=== PATIENT | male | born 1990 | race African-American/Black ===

== ENCOUNTER 2017-12-26 18:55 | Emergency (ER) | payer OTHER ==
[~2017-12-26 18:55] MED LIST: CEPH-460 PO; NAPR500 PO
[2017-12-26 19:51] VITALS: BP 117/88; PULSE 104; RESP 18; TEMP 99.8; O2SAT 97
[2017-12-26] MEDS ORDERED: FLUT1SPR5 EACH NARE (20:10)
[2017-12-26] MEDS ORDERED: DOXY100C PO (20:10)
--- NOTE | 2017-12-26 20:16 | PD ---
HPI Chief Complaint: Cold / Flu Symptoms Time Seen by Provider: 19:59 Travel History International Travel<30 days: No Contact w/Intl Traveler<30days: No Traveled to known affect area: No History of Present Illness HPI 27-year-old -[place] male presents emergency department with 2 complaints. #1 his upper respiratory infection symptoms including headache, congestion, fever and chills, postnasal drip, and cough. He does have generalized myalgias but no significant fever. He states no significant wheezing or chest congestion. He has no nausea vomiting. He has been taking [id number] cough medicines. Patient also states he was recently seen and treated for a UTI proximately 2 weeks ago, and he continues to have urinary frequency and urgency without dysuria. Patient was treated previously with Keflex upon my review of his medical record. Patient denies changes in partners , testicular pain, or penile discharge. He has no known drug allergies. PFSH Past Medical History Immunizations Current: Yes Tetanus Vaccination: < 5 Years Influenza Vaccination: No Social History Alcohol Use: No Tobacco Use: No Substance Use: No Allergies-Medications (Allergen,Severity, Reaction): Coded Allergies: No Known Allergies (Verified Adverse Reaction, Unknown, 12/26/17) Reported Meds & Prescriptions Reported Meds & Active Scripts Active Flonase Nasal [place] (Fluticasone Nasal [place]) 50 Mcg/Act [place] 100 Mcg EACH NARE BID Doxycycline Hyclate 100 Mg Cap 100 Mg PO BID 14 Days Keflex (Cephalexin) 500 Mg Cap 500 Mg PO Q12H Naprosyn (Naproxen) 500 Mg Tab 500 Mg PO BID Review of Systems Except as stated in HPI: all other systems reviewed are Neg General / Constitutional: Positive: Fever, Chills Eyes: Positive: Other (Pressure behind his eyes), No: Diploplia, Blurred Vision , Photophobia, Drainage, Visual changes HENT: Positive: Headaches, Sore Throat, Rhinitis, Rhinorrhea, Congestion, No: Vertigo, Lightheadedness, Nosebleed, Neck Stiffness, Neck Pain, Dental Difficulties, Earache Cardiovascular: No: Chest Pain or Discomfort Respiratory: Positive: Cough, No: Shortness of Breath, Wheezing, Sneezing Gastrointestinal: No: Nausea, Vomiting, Diarrhea, Abdominal Pain Genitourinary: Positive: Urgency, Frequency, No: Dysuria, Pelvic Pain, Flank Pain, Discharge Musculoskeletal: No: Pain Skin: No Rash Neurologic: No: Weakness Psychiatric: No: Depression Endocrine: No: Polydipsia Hematologic/Lymphatic: No: Easy Bruising Physical Exam Narrative GENERAL: Patient appears in mild distress. He appears ill but not septic. SKIN: Warm and dry. Normal color. Normal turgor. HEAD: Atraumatic. Normocephalic. Patient has mild sinus tenderness to percussion in the maxillary sinuses per EYES: Pupils equal and round. No scleral icterus. No injection or drainage. ENT: No nasal bleeding or discharge. Mucous membranes pink and moist. TMs are somewhat dull bilaterally. No injection. Patient has injection in the posterior pharynx with cobblestoning and postnasal drip noted NECK: Trachea midline. Supple nontender without significant lymphadenopathy. CARDIOVASCULAR: Regular rate and rhythm. RESPIRATORY: No accessory muscle use. Clear to auscultation. Breath sounds equal bilaterally. GASTROINTESTINAL: Abdomen soft, non-tender, nondistended. Hepatic and splenic margins not palpable. MUSCULOSKELETAL: Extremities without clubbing, cyanosis, or edema. No obvious deformities. NEUROLOGICAL: Awake and alert. No obvious cranial nerve deficits. Motor grossly within normal limits. Five out of 5 muscle strength in the arms and legs. Normal speech. PSYCHIATRIC: Appropriate mood and affect; insight and judgment normal. Data Data Last Documented VS Vital Signs Date Time Temp Pulse Resp B/P (MAP) Pulse Ox O2 Delivery O2 Flow Rate FiO2 12/26/17 19:51 99.8 104 18 117/88 (98) 97 MDM Medical Decision Making Medical Screen Exam Complete: Yes Emergency Medical Condition: Yes Medical Record Reviewed: Yes Differential Diagnosis Upper respiratory infection. Sinusitis. Question urinary retention secondary to cold meds versus prostatitis. Narrative Course Patient will be treated with doxycycline 100 mg twice daily for 2 weeks. Patient also started on Flonase nasal spray 2 sprays each nostril daily. Patient should avoid taking further cold medicine [id number] as this may be exacerbating his urinary symptoms. Recommend close follow-up with his primary care physician in 2 weeks if symptoms do not resolve. Work note was given. Diagnosis Primary Impression: Acute sinusitis Qualified Codes: J01.00 - Acute maxillary sinusitis, unspecified Additional Impression: Prostatitis Qualified Codes: N41.9 - Inflammatory disease of prostate, unspecified Patient Instructions: General Instructions, Prostatitis (ED), Sinusitis (ED), Urinary Retention in Men (DC) Additional Instructions: Patient will be treated with doxycycline 100 mg twice daily for 2 weeks. Patient also started on Flonase nasal spray 2 sprays each nostril daily. Patient should avoid taking further cold medicine [id number] as this may be exacerbating his urinary symptoms. Recommend close follow-up with his primary care physician in 2 weeks if symptoms do not resolve. Work note was given. Med/Other Pt SpecificInfo: Prescription(s) given Scripts Fluticasone Nasal [place] (Flonase Nasal [place]) 50 Mcg/Act [place] 100 MCG EACH NARE BID for Allergies, #1 BOTTLE 0 Refills Prov: Clark Phillips MD 12/26/17 Doxycycline Hyclate (Doxycycline Hyclate) 100 Mg Cap 100 MG PO BID for Infection for 14 Days, #28 CAP 0 Refills Prov: Clark Phillips MD 12/26/17 Disposition: 01 DISCHARGE HOME Condition: Stable Gerry Lynch December 26, 2017 20:16
== END 2017-12-26 20:27 | disposition home or self-care (01) ==
LOC: NEPK 18:55
DX: J01.00 Acute maxillary sinusitis, unspecified (principal); N41.9 Inflammatory disease of prostate, unspecified
CPT/HCPCS: 99283